=== PATIENT | female | born 1990 | race African-American/Black ===

== ENCOUNTER 2022-09-26 15:31 | Emergency (ER) | payer OTHER ==
[~2022-09-26] VITALS: Ht 170.2 cm; Wt 104.0 kg
[2022-09-26] MEDS ORDERED: SULF1TAB48 MT (22:04)
[2022-09-26] MEDS ORDERED: CEPH500C2 MT (22:04)
[2022-09-26 22:19] VITALS: BP 132/80
== END 2022-09-26 22:19 | disposition home or self-care (01) ==
LOC: ER 15:49
DX: N63.25 Unspecified lump in the left breast, overlapping quadrants (principal); R21 Rash and other nonspecific skin eruption; Z98.890 Other specified postprocedural states
CPT/HCPCS: 76642; 81025; 99284